=== PATIENT | male | born 2000 | race Caucasian/White ===

== ENCOUNTER 2020-10-16 12:01 | Outpatient (CLI) | payer OTHER, SELFPAY ==
[2020-10-16 12:51] LABS: SARS-CoV-2 Ag Positive (Negative)
== END 2020-10-16 12:02 | disposition home or self-care (01) ==
PROVIDERS: PCP Family Medicine; Visit Provider Family Medicine
DX: U07.1 COVID-19 (principal)
CPT/HCPCS: 87426

== ENCOUNTER 2023-10-15 10:23 | Outpatient (CLI) | payer OTHER, SELFPAY ==
--- NOTE | ~2023-10-15 | XR_ITS ---
EXAMINATION: XR abdomen obstructive series DATE: 10/15/2023 10:55 INDICATION: Abdominal pain and nausea TECHNIQUE: Upright and supine views of the abdomen were obtained. COMPARISON: None. FINDINGS: The bowel gas pattern is normal. There are no dilated loops of bowel. Phleboliths are noted in the pelvis. The visualized lung bases are clear. IMPRESSION: 1. No radiographic correlate for the patient's symptoms. Reviewed, dictated and finalized at location L. RACKER
[2023-10-15 10:38] LABS: Basophils Absolute Auto 0.07 K/mm3 (0.00-0.10); Basophils Percent Auto 0.8 % (0.0-1.0); Eosinophils Absolute Auto 0.37 K/mm3 (0.02-0.50); Eosinophils Percent Auto 4.3 % (1.0-6.0); Hematocrit 46.8 % (40.0-54.0); Hemoglobin 16.2 g/dL (14.0-18.0); Immature Granulocyte Absolute 0.02 K/mm3 (0.00-0.00); Immature Granulocyte Percent A 0.2 % (0.0-0.0); Lymphocytes Absolute Auto 1.85 K/mm3 (1.10-4.50); Lymphocytes Percent Auto 21.7 % (18.0-42.0); Mean Corpuscular HGB Conc 34.6 g/dL (32.0-36.0); Mean Corpuscular Hemoglobin 29.1 pg (27.0-31.0); Mean Corpuscular Volume 84.2 fL (78.0-102.0); Mean Platelet Volume 9.1 fl (8.7-11.0); Monocytes Absolute Auto 0.54 K/mm3 (0.10-0.90); Monocytes Percent Auto 6.3 % (2.0-11.0); Neutrophils Absolute Auto 5.7 K/mm3 (1.7-7.2); Neutrophils Percent Auto 66.7 % (50.0-70.0); Platelet Count Result 355 K/mm3 (150-420); Red Blood Count 5.56 M/mm3 (4.70-6.10); Red Cell Distribution Width 12.6 % (11.6-14.4); White Blood Count 8.5 K/mm3 (4.8-10.8)
[2023-10-15 10:48] LABS: Appearance Urine Clear (Clear); Bilirubin Urine Negative (Negative); Blood Urine Negative (Negative); Color Urine Light Yellow (Yellow); Glucose Urine UA Negative (Negative); Ketones Urine Negative (Negative); Leukocyte Esterase Ur Negative (Negative); Nitrate Urine Negative (Negative); Protein Urine Negative (Negative); Specific Grav Ur 1.025 (1.010-1.020); Urobilinogen Urine 0.2 mg/dL (0.2-1.0)
[2023-10-15 10:53] LABS: Add Urine Microscopic? NO
[2023-10-15 11:24] LABS: Alanine Aminotransferase 25 U/L (16-63); Albumin Level 4.4 g/dL (3.4-5.0); Alkaline Phosphatase 37 U/L (46-116); Amylase 37 U/L (25-115); Anion Gap 8 mmol/L (8-16); Aspartate Amino Transferase 15 U/L (15-37); Bilirubin,Total 0.4 mg/dL (0.00-1.00); Blood Urea Nitrogen 12 mg/dL (7-18); Calcium 9.8 mg/dL (8.5-10.1); Carbon Dioxide 30 mmol/L (21-32); Chloride 102 mmol/L (98-108); Estimated Glomerular Filt Rate > 60; Glucose 93 mg/dL (70-99); Lipase 30 U/L (16-77); Osmolality Calculated 289 mOsm/kg (285-295); Potassium 4.2 mmol/L (3.5-5.1); Sodium 140 mmol/L (136-145); Total Protein 7.7 g/dL (6.4-8.2)
== END 2023-10-15 10:24 | disposition home or self-care (01) ==
LOC: CHSLAB 10:25
PROVIDERS: PCP Family Medicine; Visit Provider Family Medicine
DX: R10.9 Unspecified abdominal pain (principal)
CPT/HCPCS: 36415; 74019; 80053; 81003; 82150; 83690; 85025

== ENCOUNTER 2025-09-03 17:10 | Emergency (ER) | payer BC, SELFPAY ==
--- OUTSIDE RECORDS SUMMARY | 2005-07-01 10:15 | XMS_ITS | Continuity of Care Document ---
Author Organization [facility] Address [address] [place] [address] Phone Care Team Providers Care Warehouse Examiner Name Role Phone Uzma Bloom Unavailable Unavailable Advance Directives Directive Yes / No Effective Date File Name No Information Encounters Encounter Description Practice Location Reason(s) For Visit Diagnoses Date Provider Providers Copied on Encounter [facility], [address], [place], [place], [id number], tel:[phone] [facility] No Information Sep-0 6-200 5 Merle Gusman. [address] , [address], [place], [address], [place]. tel:[phone] Family History Family Member Type Diagnosis Age At Onset No Information Payers Payer name Insurance type Covered constitution party ID Authoriza titisha(s) [facility] Commercial CI [id number] Social History Type Description Quantity Date Captured Comments Sex Male Smoking Status No Information Chief Complaint And Reason For Visit No Information Reason For Referral Reason For Referral No Information History Of Present Illness Encounter Date Complaint History Of Prese nt Illness No Information Functional Status Date Functional Assessmen t No Information Instructions Date Instruction Additional Infor mation No Information Assessments Type Assessment Date No Information Patient Care Teams Name Effective Dates (start - stop) Status Members No Information
[2025-09-03] VITALS (12 sets, daily range): BP systolic 130–158; BP diastolic 85–103; PULSE 71–83; RESP 12–24; TEMP 36.6–36.7; O2SAT 93–98
--- NOTE | ~2025-09-03 | XR_ITS ---
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 Technique: 2 views obtained. Findings: The lungs are clear, no effusion. No pneumothorax. Heart is normal size. Mediastinal and hilar contours are within normal limits. Bony thorax no acute abnormality. Impression: No acute cardiopulmonary abnormality. Reviewed, dictated and finalized at location P. SETTER Impression: No acute cardiopulmonary abnormality.
--- NOTE | 2025-09-03 17:13 | ED_ITS ---
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 Patient had symptoms of scratchy throat and irritation and headache. The medication is called Busulfan and per the safety data sheet as a compass tubal liquid and can cause respiratory irritation. Patient did not get it on his skin that he is aware or swallow that agent. The safety data sheet says if swallowed call poison Control. Patient did not swallow this agent. Patient is feeling better at this time but was concerned and came to the emergency room for evaluation. He will be talking to tomorrow for follow-up. The patient was getting an infusion but the infusion backed up and got all over the bed and on the floor. HAZMAT was called to relieve the chemical agent. Patient finished his shift and came to the ER thereafter which is 8 hours after exposure. Onset (ago): hour(s) (Eight hours ago) Location: chest (Patient had some irritation of his throat and chest after inhalation in the room when it spilled off the patient) Radiation: non-radiation Severity: mild Severity scale (1-10): 1 Quality: burning Pain Consistency: constant and now resolved Relieving factors: none Exacerbating factors: none Associated symptoms: other (Headache) Treatments prior to arrival: none Related Data Allergies Allergy/AdvReac Type Severity Reaction Status Date / Time No Known Allergies Allergy Verified 09/03/25 17:13 Review of Systems Review of Systems: All systems reviewed & are unremarkable except as noted in HPI and below Constitutional: Constitutional: Reports no additional constitutional complaints Eyes: Eyes: Reports no additional eye complaints ENT: Reports system reviewed and no additional complaints, except as documented Cardiovascular: Cardiovascular: Reports no additional cardiovascular complaints Respiratory: Respiratory: Reports no additional respiratory complaints Gastrointestinal: Gastrointestinal: Reports no additional gastrointestinal complaints Genitourinary: Genitourinary: Reports no additional male genitourinary complaints Musculoskeletal: Musculoskeletal: Reports no additional musculoskeletal complaints Integumentary/Breasts: Skin/Breast: Reports system reviewed and no additional complaints, except as docu Neurologic: Reports system reviewed and no additional complaints, except as documented Psychiatric: Psychiatric: Reports no additional psychiatric complaints Endocrine: Endocrine: Reports no additional endocrine complaints Hematologic/Lymphatic: Hematologic/Lymphatic: Reports no additional hematologic/lymphatic complaints Allergic/Immunologic: Allergic/Immunologic: Reports no additional allergic/immunologic complaints Exam Const: General: cooperative, healthy appearing and comfortable HENMT: Head: normal to inspection, No palpable skull fracture present and normocephalic Mouth: Yes Normal oral and palatal mucosa present Throat: posterior oropharynx normal Eyes: General: appearance normal, both eyes and all related structures Visual Acevedo: normal visual acevedo by confrontation Alignment and Position: alignment normal Neck: Neck: normal visual inspection, full ROM and no lymphadenopathy Chest: Chest palpation & inspection: normal inspection of the chest and normal palpation of entire chest wall Resp: Effort & Inspection: normal respiratory effort, able to speak in complete sentences, not labored and no nasal flaring Auscultation: clear to auscultation bilaterally Cardio: Jugular venous distension: no JVD Palpation: normal PMI Rate: regular rate Rhythm: regular rhythm Heart sounds: S1 normal heart sound present and S2 normal heart sound present GI: Inspection: normal to inspection and non-distended Auscultation: normal bowel sounds Back/Spine/Pelvis: Back: no CVA tenderness, No mass and No erythema Skin: General skin exam: normal color, no rashes or lesions noted and elasticity normal Neuro: General: patient oriented x3, gait normal, tone normal and moves all extremities Extrem: General: normal to inspection, full ROM and capillary refill normal Psych: Appearance: grossly normal, well kempt and not disheveled Course Vital Signs Vital signs: Vital Signs Pulse Oximetry 98 09/03/25 17:10 Oxygen Delivery Room Air 09/03/25 17:10 Temperature 36.7 C 09/03/25 17:12 Pulse Rate 73 09/03/25 17:12 Respiratory Rate 18 09/03/25 17:12 Blood Pressure 158/103 H 09/03/25 17:12 Pulse Oximetry 98 09/03/25 17:12 Oxygen Delivery Room Air 09/03/25 17:12 Medical Decision Making MDM Narrative Medical decision making narrative: Patient is a 25-year-old male with exposure to a toxic chemical of chemotherapy by inhalation only and not exposure orally or through the skin that he is aware. This happened 8 hours ago. Patient symptoms are mostly resolved except headache. Headache may or may not be related according to the patient. We will go ahead and do chest x-ray. We will monitor patient on the funeral professional for 30 minutes. Patient has follow-up with HR tomorrow. Vital Signs Vital Signs: Vital Signs Pulse Oximetry 98 09/03/25 17:10 Oxygen Delivery Room Air 09/03/25 17:10 Temperature 36.7 C 09/03/25 17:12 Pulse Rate 73 09/03/25 17:12 Respiratory Rate 18 09/03/25 17:12 Blood Pressure 158/103 H 09/03/25 17:12 Pulse Oximetry 98 09/03/25 17:12 Oxygen Delivery Room Air 09/03/25 17:12 Imaging Data Attestation: I personally reviewed and interpreted this imaging study as follows: Radiologist's impression: Chest x-ray is negative for acute process Discharge Plan Discharge Clinical Impression: Exposure to toxic chemical Patient Disposition: Home Condition: Stable Instructions: Pneumonitis (ED) Additional Instructions: I have given you a handout on pneumonitis which may or may not be present at this time. Look for the symptoms and seek assistance if anything starts to be problematic. Please seek HR 1st thing in the morning to make a case for yourself. Patient Language: Solomon Islander Follow-up/Referrals: Samuel Gooden MD [Primary Care Provider, Internal Medicine] Time of Disposition: 18:32
--- OUTSIDE RECORDS SUMMARY | 2025-09-03 18:04 | XMS_ITS | Clinical Summary ---
Author Organization [facility] Address [address] [place] [id number] Care Team Providers Care Executive Candidate Developer Name Role Phone Samuel Gooden MD Primary Care Provider Allergies Active Allergy Reactions Criticality Noted Date Comments Penicillins Unknown 12/16/2020 Medications No known medications Social History Tobacco Use Types Packs/Day Years Used Date Smoking Tobacco: Never Smokeless Tobacco: Never Tobacco Cessation:Counseling Given: Not Answered Alcohol Use Standard Drinks/Week Comments Yes 0 (1 standard drink = 0.6 oz pur e alcohol) weekly Sex and Gender Information Value Date Recorded Sex Assigned at Male 02/15/2025 2:55 PM CDT Legal Sex Male 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 Gender Identity Not on file Sexual Orientation Not on file Last Filed Vital Signs Vital Sign Reading Time Taken Comments Blood Pressure 166/94 02/15/2025 2:32 PM CDT Pulse 91 02/15/2025 2:28 PM CDT Temperature 36.6 C (97.9 F) 02/15/2025 2:28 PM CDT Respiratory Rate 20 02/15/2025 2:28 PM CDT Oxygen Saturation 97% 02/15/2025 2:32 PM CDT Inhaled Oxygen Concentration - - Weight 120.7 kg (266 lb 3.2 oz) 02/15/2025 2:29 PM CDT Height 177.8 cm (5' 10) 02/15/2025 2:28 PM CDT Body Mass Index 38.2 02/15/2025 2:28 PM CDT Plan of Treatment Health Maintenance Due Date Last Done Comments Annual Physical 2001 DTaP, Tdap and Td Vaccines (6 - Tdap) 2009 04/06/2002, 02/06/1999, 1998, Additional history exists Hepatitis C 01/12/2016 Hepatitis B Vaccines (1 of 3 - 19+ 3-dose series) 2017 COVID-19 Vaccine ( - 2024- season) 2025 Influenza Adult (#1) 2025 Meningococcal Vaccine Completed 01/10/2015, 012 HPV Vaccines Completed 11/21/2016, 04/26, 01/10/2015 Hepatitis A Vaccines Aged Out No long er eligible based on patient's age to complete this topic Meningococcal B Vaccine Aged Out No l onger eligible based on patient's age to complete this topic Pneumococcal Vaccine: Pediatrics (0 to 5 Years) and At-Risk Patients (6 to 49 Years) Aged Out No longer eligible based on patient's age to complete this topic RSV Immunizations Under 20 Months Aged Out No longer eligible based on patient's age to complete this topic Insurance [employer] [facility] Care Teams Executive Candidate Developer Relationship Specialty Start Date End Date Samuel Gooden MD [address] [phone] PCP - General FAMILY PRACTICE 12/16/20
== END 2025-09-03 18:36 | disposition home or self-care (01) ==
PROVIDERS: Emergency Provider Emergency Medicine; PCP Family Medicine
DX: T45.1X1A Poisoning by antineoplastic and immunosuppressive drugs, accidental (unintentional), initial encounter (principal); J02.9 Acute pharyngitis, unspecified; R51.9 Headache, unspecified
CPT/HCPCS: 71046; 99283